=== PATIENT | female | born 2000 | race Caucasian/White ===

== ENCOUNTER 2024-07-07 13:53 | Outpatient (AMB) | payer OTHER, SELFPAY ==
--- NOTE | 2024-07-07 14:07 | A.OFFVIS_ITS ---
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 She says she has never had sex with anybody she has never had a pelvic exam anywhere. 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 She likes it she lives with a roommate she is hoping to have her job in the summer. She has a primary care provider in the [facility] and she said she was referred here for this. She said her primary provider thought she might have PCOS because of her irregular menses increased facial hair and acne and also because she is overweight.. She is just starting on the journey of trying to address these issues and has not yet established a full pattern of exercise and changing diet but she is paying attention to it. She wonders if she has PCOS and if she does what she should take for it. 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 Acne and acne scars noted on face and chest and size and labia.. Hirsute is Um is cosmetically addressed External vegetable scullion exam notable for the above acne scarring but also an open shallow lesion right upper labia minora just to the right of her clitoris about 1 cm oval patient says it was more painful when it started and she has had it before and she can not explain or tell me if it happens when she has scratched herself or irritated herself or any thing and she can not recall any oral similar lesions either.. Culture was taken speculum exam consistent with nulliparous patient vagina is slightly reddened cervix slightly reddened but nulliparous small long thick closed uterus not palpable secondary to adipose adnexa nontender fair tone with Kegel. General: healthy appearing, comfortable, no acute distress, well developed and alert Nutritional Appearance: average body habitus Orientation/consciousness: patient oriented x3 Limitations: no limitations HEENT Head: Yes normocephalic Neck Neck: Yes normal visual inspection Chest Chest palpation & inspection: normal inspection of the chest Breast/axilla inspection: normal inspection of the breasts and normal inspection of the axillae Breast/axilla palpation: normal palpation of the breasts and normal palpation of the axillae Resp Effort & Inspection: normal respiratory effort GI Inspection: Yes normal to inspection, No Abdominal wall edema and No distended Palpation (GI): Soft to palpation and nontender General: Yes bladder normal to palpation External Female Exam: normal external appearance and normal appearance of the urethra Speculum Exam - Vagina: normal appearance of the vagina, normal palpation and normal vaginal discharge Speculum Exam - Cervix: normal appearance of the cervix, normal palpation and nontender Bimanual exam- vagina & uterus: normal bimanual exam, normal palpation, uterine size normal, bladder normal to palpation, consistency normal, normal palpation, uterine mobility normal, uterine shape normal, No Cervical tenderness present, non-tender and no cervical motion tenderness Bimanual Exam- Adnexa, other: normal adnexae, no masses, normal and No adnexal tenderness Neuro General: patient oriented x3 Assessment & Plan Assessment & Plan (1) History of irregular menstrual cycles: Code(s): Z87.42 - Personal history of other diseases of the female genital tract Category: Medical (2) Well woman exam with routine gynecological exam: Code(s): Z01.419 - Encounter for gynecological examination (general) (routine) without abnormal findings Category: Medical (3) Cervical cancer screening: Code(s): Z12.4 - Encounter for screening for malignant neoplasm of cervix Category: Medical (4) Labial lesion: Code(s): N90.89 - Other specified noninflammatory disorders of vulva and perineum Category: Medical (5) Hirsutism: Code(s): L68.0 - Hirsutism Category: Medical (6) Acne: Code(s): L70.9 - Acne, unspecified Category: Medical (7) Obesity (BMI 35.0-39.9 without comorbidity): Code(s): E66.9 - Obesity, unspecified Category: Medical Plan For new vegetable scullion visit. She says she has never had sex with anybody she has never had a pelvic exam anywhere. 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 She likes it she lives with a roommate she is hoping to have her job in the summer. She has a primary care provider in the [facility] and she said she was referred here for this. She said her primary provider thought she might have PCOS because of her irregular menses increased facial hair and acne and also because she is overweight.. She is just starting on the journey of trying to address these issues and has not yet established a full pattern of exercise and changing diet but she is paying attention to it. She wonders if she has PCOS and if she does what she should take for it. -----Discussed in this visit the following: healthy balanced diet, regular and consistent exercise, getting recommended health screens, doing the best she can for her particular health concerns, kegel exercises, pap smear screening and followup recommendations, mammography screening and SBE, normal changes in cycles in her life stage--- . Teaching done about the 1st pelvic exam the need for Pap smear and HPV and its role in abnormal Pap smears and that if she is virginal she would be at low risk but still we should do Pap smears. During the exam it was immediately noted that she had a lesion that was unroofed on her right labia minora next to her clitoris about 1 cm oval which appeared possibly consistent with a herpetic lesion. Patient said she gets some every now and then and that it hurt more when it started but starting to feel better now. She says she also did shave recently and she does not know if she could have cut herself shaving she denies any sexual activity or that anyone has ever touched her there she also does not recall having any cold sores on her lips either and can not identify any time when any other contact would have happened with her labia other than herself. Given this mystery I am doing herpetic culture to assess for herpes and acknowledged that it may be just a scraped from having cut herself shaving. Because there was a suspicion I am also recommending we do full blood work testing for STIs as I am also ordering some blood work to assess for some of the markers that would be consistent with PCOS which I discussed with her in general. I discussed the PCOS is in some ways a poor Name for the health concern which really involves a metabolic syndrome connected with being overweight and all of the hormones being elevated and not in the normal range an d therefore affecting their effect on her body, including the hirsute is Um the acne the irregular menses and the difficulty was losing weight. PCOS was discussed in more detail as well: ---Discussed PCOS in general and specifically about the interplay of the abnormal hormonal milieu related to being overweight, with the elevations of many hormone levels, including testosterone and estrogen, as well as others that contribute to cycles that are anovulatory and therefore prolonged, and when periods do come they come very heavy, and can contribute to lots of cramping, with passage of clots and anemia. Discussed the common symptoms related to the elvated hormonal levels, including increased facial hair, male pattern hair thinning, acne, and increased central abdominal girth. Discussed the interplay with difficulty getting when desired, but still possible, and therefore the need to contracept as appropriate and when needed. Discussed the role of weight loss as the primary, most important, and most likely to succeed, intervention, in achieving healthier status as regards PCOS, and ovulatory regular cycles. Additionally the very important relationship to elevated insulin levels, and blood sugars, and high risk of pre diabetes, progressing to diabetes as well as other metabolic syndromes related to this was discussed. Also discussed common interventions for some of the above, including if appropriate, use of oral contraceptives, . We will await blood work and the ultrasound findings and we will have a visit within the month to review all findings. If the herpes is positive only she can really assess how she could have come in contact with the virus. Since it is getting better for her I did offer her medication but she does not feel she needs it. Discussed in general terms the challenges of obesity and challenges for her health and efforts she is engaging in to manage this including dietary changes water intake attention to sleep inclusion of a regular exercise have it and dealing with the may need stressors of life that can contribute to obesity in general. Encouraged her to continue in all have her best efforts- In addition she will be following up with her primary care provider with a new appointment in August. Labs today pelvic ultrasound soon and follow-up visit after all within the month to revie Orders: Orders Herpes Virus Culture Today Z01.419 - Encounter for gynecological examination (general) (routine) without abnormal findings Hepatitis C Antibody Today N90.89 - Other specified noninflammatory disorders of vulva and perineum, Z01.419 - Encounter for gynecological examination (general) (routine) without abnormal findings, Z12.4 - Encounter for screening for malignant neoplasm of cervix, Z87.42 - Personal history of other diseases of the female genital tract HIV Ab/Ag Today N90.89 - Other specified noninflammatory disorders of vulva and perineum, Z01.419 - Encounter for gynecological examination (general) (routine) without abnormal findings, Z12.4 - Encounter for screening for malignant neoplasm of cervix, Z87.42 - Personal history of other diseases of the female ge nital tract Herpes Simplex Virus Ab IgG Today N90.89 - Other specified noninflammatory disorders of vulva and perineum, Z01.419 - Encounter for gynecological examination (general) (routine) without abnormal findings, Z12.4 - Encounter for screening for malignant neoplasm of cervix, Z87.42 - Personal history of other diseases of the female genital tract Prolactin Today E66.9 - Obesity, unspecified, L68.0 - Hirsutism, L70.9 - Acne, unspecified, N90.89 - Other specified noninflammatory disorders of vulva and perineum, Z01.419 - Encounter for gynecological examination (general) (routine) without abnormal findings, Z12.4 - Encounter for screening for malignant neoplasm of cervix, Z87.42 - Personal history of other diseases of the female genital tract Glucose Random Today E66.9 - Obesity, unspecified, L68.0 - Hirsutism, L70.9 - Acne, unspecified, N90.89 - Other specified noninflammatory disorders of vulva and perineum, Z01.419 - Encounter for gynecological examination (general) (routine) without abnormal findings, Z12.4 - Encounter for screening for malignant neoplasm of cervix, Z87.42 - Personal history of other diseases of the female genital tract Bacterial Vaginosis Panel Today Z01.419 - Encounter for gynecological examination (general) (routine) without abnormal findings CT NG by PCR Today Z01.419 - Encounter for gynecological examination (general) (routine) without abnormal findings Pap Smear Today Z01.419 - Encounter for gynecological examination (general) (routine) without abnormal findings US pelvic and transvaginal Today N90.89 - Other specified noninflammatory disorders of vulva and perineum, Z01.419 - Encounter for gynecological examination (general) (routine) without abnormal findings, Z12.4 - Encounter for screening for malignant neoplasm of cervix, Z87.42 - Personal history of other diseases of the female genital tract Thyroid Stimulating Hormone Today N90.89 - Other specified noninflammatory disorders of vulva and perineum, Z01.419 - Encounter for gynecological examination (general) (routine) without abnormal findings, Z12.4 - Encounter for screening for malignant neoplasm of cervix, Z87.42 - Personal history of other diseases of the female genital tract Testosterone, Free/Total Today N90.89 - Other specified noninflammatory disorders of vulva and perineum, N92.6 - Irregular menstruation, unspecified, Z01.419 - Encounter for gynecological examination (general) (routine) without abnormal findings, Z12.4 - Encounter for screening for malignant neoplasm of cervix, Z87.42 - Personal history of other diseases of the female genital tract Syphilis Screen Today N90.89 - Other specified noninflammatory disorders of vulva and perineum, Z01.419 - Encounter for gynecological examination (general) (routine) without abnormal findings, Z12.4 - Encounter for screening for malignant neoplasm of cervix, Z87.42 - Personal history of other diseases of the female genital tract Hepatitis B Surface Antigen Today N90.89 - Other specified noninflammatory disorders of vulva and perineum, Z01.419 - Encounter for gynecological examination (general) (routine) without abnormal findings, Z12.4 - Encounter for screening for malignant neoplasm of cervix, Z87.42 - Personal history of other diseases of the female genital tract DHEA, Unconjugated Today E66.9 - Obesity, unspecified, L68.0 - Hirsutism, L70.9 - Acne, unspecified, N90.89 - Other specified noninflammatory disorders of vulva and perineum, Z01.419 - Encounter for gynecological examination (general) (routine) without abnormal findings, Z12.4 - Encounter for screening for malignant neoplasm of cervix, Z87.42 - Personal history of other diseases of the female genital tract Coding Level of Care Code New Pt Prev Care 18-39yr([id number] Diagnoses History of irregular menstrual cycles Z87.42 Well woman exam with routine gynecological exam Z01.419 Cervical cancer screening Z12.4 Labial lesion N90.89 Hirsutism L68.0 Acne L70.9 Obesity (BMI 35.0-39.9 without comorbidity) E66.9 Time Spent (min) 70 Comment Extra time taken to discuss physical findings and the question of PCOS
[2024-07-07 14:13] VITALS: BP 118/74; BMI 37.2
== END 2024-07-07 15:47 | disposition home or self-care (01) ==
LOC: HO.HWSM 13:53
PROVIDERS: PCP Internal Medicine; Visit Provider Advanced Practice Midwife
DX: Z01.419 Encounter for gynecological examination (general) (routine) without abnormal findings (principal); N90.89 Other specified noninflammatory disorders of vulva and perineum; L68.0 Hirsutism
CPT/HCPCS: 99385; 99459

== ENCOUNTER 2024-07-07 13:53 | Outpatient (REF) | payer OTHER, SELFPAY | END 2024-07-07 13:54 | disposition home or self-care (01) | LOC: HO.LAB 13:53 | PROVIDERS: PCP Internal Medicine; Visit Provider Advanced Practice Midwife | DX: Z01.419 Encounter for gynecological examination (general) (routine) without abnormal findings (principal); N90.89 Other specified noninflammatory disorders of vulva and perineum; L68.0 Hirsutism; L70.9 Acne, unspecified; E66.9 Obesity, unspecified; Z68.37 Body mass index [BMI] 37.0-37.9, adult; Z87.42 Personal history of other diseases of the female genital tract | CPT/HCPCS: 99385; 99459 ==

== ENCOUNTER 2024-07-07 15:12 | Outpatient (REF) | payer OTHER, SELFPAY ==
[2024-07-07 16:38] LABS: Glucose Random 100 mg/dL (60-115)
[2024-07-07 16:58] LABS: Thyroid Stimulating Hormone 1.83 uIU/mL (0.32-4.0)
[2024-07-07 20:06] LABS: Bacterial Vaginosis PCR NEGATIVE (Negative); Candida Group PCR NOT DETECTED (Not Detect); Candida glab krusei PCR NOT DETECTED (Not Detect); Trichomonas vaginalis PCR NOT DETECTED (Not Detect)
[2024-07-07 20:47] LABS: CT PCR NOT DETECTED (Not Detect.); NG PCR NOT DETECTED (Not Detect.)
[2024-07-08 04:59] LABS: Prolactin 9.7 ng/mL
[2024-07-08 05:49] LABS: Herpes Simplex Type 1 IgG <0.90 index; Herpes Simplex Type 2 IgG <0.90 index
[2024-07-08 08:00] LABS: Syphilis Screen Nonreactive (Nonreactive)
[2024-07-08 08:14] LABS: HBsAGNum1 0.31 S/CO (0.00-0.99); HIV AB/AG Nonreactive (Nonreactive); HIV Num 1 0.07 S/CO (0.00-0.99); Hepatitis B Surface Antigen Negative (Negative); ~HepC Num1 0.08 S/CO (0.00-0.79); ~Hepatitis C Antibody Nonreactive (Nonreactive)
[2024-07-13 14:03] LABS: HPV Genotype 16 Negative (Negative); HPV Genotype 18 Negative (Negative); HPV High Risk Negative (Negative)
[2024-07-14 11:38] LABS: DHEA, Unconjugated 983 ng/dL
[2024-07-17 20:33] LABS: Testosterone, Free 8.7 pg/mL (0.1-6.4); Testosterone, Total 54 ng/dL (2-45)
== END 2024-07-07 15:13 | disposition home or self-care (01) ==
LOC: HO.LNP 15:12
PROVIDERS: Visit Provider Advanced Practice Midwife
DX: Z01.411 Encounter for gynecological examination (general) (routine) with abnormal findings (principal); N90.89 Other specified noninflammatory disorders of vulva and perineum; Z87.42 Personal history of other diseases of the female genital tract; L68.0 Hirsutism; L70.9 Acne, unspecified; E66.9 Obesity, unspecified; N92.6 Irregular menstruation, unspecified; Z12.4 Encounter for screening for malignant neoplasm of cervix
CPT/HCPCS: 81515; 82626; 82947; 84146; 84402; 84403; 84443; 86695; 86696; 86780; 86803; 87255; 87340; 87389; 87491; 87591; 87626; 88175

== ENCOUNTER 2024-07-07 15:24 | Outpatient (REF) | payer OTHER, SELFPAY | END 2024-07-07 15:25 | disposition home or self-care (01) | LOC: HO.HHCL 15:24 | PROVIDERS: Visit Provider Advanced Practice Midwife | DX: Z13.89 Encounter for screening for other disorder (principal) ==

== ENCOUNTER 2024-08-05 16:03 | Outpatient (REF) | payer OTHER, SELFPAY ==
--- NOTE | ~2024-08-05 | US_ITS ---
EXAMINATION: US PELVIS TRANSABDOMINAL AND TRANSVAGINAL HISTORY: Z87.42 - Personal history of other diseases of the female genital tract COMPARISON: There are no prior studies available for comparison. TECHNIQUE: Transabdominal and endovaginal real-time 2D pino-scale ultrasound was performed. FINDINGS: Uterus: The uterus is normal in size, measuring 6.0 x 1.7 x 2.7 cm. Myometrium has a normal echotexture. No fibroids are identified. Endometrium: The endometrial stripe measures 3 mm in thickness. Right ovary: The right ovary measures 4.0 x 2.3 x 2.0 cm. Multiple follicles are seen arranged around the periphery of the ovary. Left ovary: The left ovary measures 3.9 x 2.1 x 2.7 cm. Multiple follicles are seen arranged around the periphery of the ovary. Pelvic fluid: none. US/US pelvic and transvaginal IMPRESSION: Mildly enlarged ovaries demonstrating multiple peripheral follicles. The appearance is suggestive of polycystic ovarian syndrome. Clinical correlation is recommended. Electronically signed by: Ajay Marks MD 08/06/2024 07:18 AM EDT
== END 2024-08-05 16:04 | disposition home or self-care (01) ==
LOC: HO.US 16:03
PROVIDERS: PCP Internal Medicine; Visit Provider Advanced Practice Midwife
DX: N90.89 Other specified noninflammatory disorders of vulva and perineum (principal); Z87.42 Personal history of other diseases of the female genital tract
CPT/HCPCS: 76830; 76856

== ENCOUNTER → 2024-08-05 16:05 | Outpatient (BNV) | payer OTHER, SELFPAY | PROVIDERS: PCP Internal Medicine; Visit Provider Radiology Diagnostic Radiology | DX: E28.2 Polycystic ovarian syndrome (principal); Z87.42 Personal history of other diseases of the female genital tract | CPT/HCPCS: 76856; 78630 ==

== ENCOUNTER 2025-01-06 13:45 | Outpatient (AMB) | payer OTHER, SELFPAY ==
[2025-01-06 13:49] VITALS: BMI 37.2
--- NOTE | 2025-01-06 13:49 | A.OFFVIS_ITS ---
Vital Signs 01/06/25 13:49 Height 5 ft 3 in Weight 210 lb BMI 37.2 Intake Visit Reasons: US Follow up Intake Note: u/s f/u done on 08/05/24 Information Interpreted: non-clinical & clinical Accompanied by: Self / Same As Patient Allergies No Known Allergies Allergy (Verified 01/06/25 13:51) Medication List - Last Reconciled 01/06/25 by Callie Villar LPN doxycycline hyclate 100 mg PO BID duloxetine 60 mg PO DAILY gabapentin 100 mg PO BID temazepam 15 mg PO BEDTIME tretinoin 0.025% (Retin-A) 1 appl topical BEDTIME ziprasidone HCl (Geodon) 20 mg PO BID Is last menstrual period known: Yes Last menstrual period: 10/05/24 HPI HPI US Follow up: Details: Patient is here for follow-up of an ultrasound that was done on August 05. She had wondered whether not she had PCOS and she was having irregular menses she has struggled with acne hirsute is Um and being overweight she is also somewhat depressed. 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 She has a history of irregular menses she initially remembered her period as being last presenting in June but then she remembered that it really came on October 05. She had an ultrasound done to check for signals of PCOS that was done on August 05. However it was not reviewed in the absence of this provider secondary to medical leave, it definitely shows markers for PCOS. I again reviewed her history with her and reviewed the teaching I had done at the previous visit in regards to PCOS and it's contributing factors and the interplay of the elevated hormone levels and an ovulatory cycles and irregular menses as well as the symptoms of hirsute is Um acne and obesity. She has been finding it hard to find time to exercise because she works [employer] She has not had any success with weight loss she will be seeing her primary care provider again on February 07. She has not really talked about any other ways to augment her efforts. She lives in his small studio apartment and does not have room for an exercise bike. She does have a therapist. I discussed with her the options of bringing on a withdrawal bleed with Provera and following up then with irregular prescription for combination OCPs and she is interested in this option which will hopefully help with the period control aspect of her PCOS in terms of dealing with the other aspects we so discussed ways of adding exercise into her life possibly early in the morning before she goes to work and ways to choose healthier foods to aid in her health improvement she will also be following up with her primary care provider. We will see her again in 3 months to see how she is doing after the Provera and the OCP use and I also reviewed danger signs of OCPs. 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 Attending Dr: Shannon Combs CNM Ordering Physician: Shannon Combs CNM Date of Service: 08/05/24 Procedure(s): US pelvic and transvaginal Accession Number(s): [id number] cc: Cristina Vincent MD; Shannon Combs CNM~ EXAMINATION: US PELVIS TRANSABDOMINAL AND TRANSVAGINAL HISTORY: Z87.42 - Personal history of other diseases of the female genital tract COMPARISON: There are no prior studies available for comparison. TECHNIQUE: Transabdominal and endovaginal real-time 2D pino-scale ultrasound was performed. FINDINGS: Uterus: The uterus is normal in size, measuring 6.0 x 1.7 x 2.7 cm. Myometrium has a normal echotexture. No fibroids are identified. Endometrium: The endometrial stripe measures 3 mm in thickness. Right ovary: The right ovary measures 4.0 x 2.3 x 2.0 cm. Multiple follicles are seen arranged around the periphery of the ovary. Left ovary: The left ovary measures 3.9 x 2.1 x 2.7 cm. Multiple follicles are seen arranged around the periphery of the ovary. Pelvic fluid: none. US/US pelvic and transvaginal IMPRESSION: Mildly enlarged ovaries demonstrating multiple peripheral follicles. The appearance is suggestive of polycystic ovarian syndrome. Clinical correlation is recommended. Electronically signed by: Ajay Marks MD 08/06/2024 07:18 AM EDT RP Dictated By: Ajay Marks MD Signed By: <Electronically signed by Ajay Marks MD in OV> 08/06/24 0718 DD/ 10 TD/TT: 08/05/24 162 Hat Sizer: Assessment & Plan Assessment & Plan (1) History of irregular menstrual cycles: Code(s): Z87.42 - Personal history of other diseases of the female genital tract Category: Medical (2) Obesity (BMI 35.0-39.9 without comorbidity): Code(s): E66.9 - Obesity, unspecified Category: Medical (3) Hirsutism: Code(s): L68.0 - Hirsutism Category: Medical (4) Acne: Code(s): L70.9 - Acne, unspecified Category: Medical (5) PCOS (polycystic ovarian syndrome): Comment: Patient has hirsutisUm acne obesity irregular menses as well as ultrasound findings all consistent with PCOS. Code(s): E28.2 - Polycystic ovarian syndrome Category: Medical Plan Patient is here for follow-up of an ultrasound that was done on August 05. She had wondered whether not she had PCOS and she was having irregular menses she blake s struggled with acne hirsute is Um and being overweight she is also somewhat depressed. 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 She has a history of irregular menses she initially remembered her period as being last presenting in June but then she remembered that it really came on October 05. She had an ultrasound done to check for signals of PCOS that was done on August 05. However it was not reviewed in the absence of this provider secondary to medical leave, it definitely shows markers for PCOS. I again reviewed her history with her and reviewed the teaching I had done at the previous visit in regards to PCOS and it's contributing factors and the interplay of the elevated hormone levels and an ovulatory cycles and irregular menses as well as the symptoms of hirsute is Um acne and obesity. She has been finding it hard to find time to exercise because she works [employer] She has not had any success with weight loss she will be seeing her primary care provider again on February 07. She has not really talked about any other ways to augment her efforts. She lives in his small studio apartment and does not have room for an exercise bike. She does have a therapist. I discussed with her the options of bringing on a withdrawal bleed with Provera and following up then with irregular prescription for combination OCPs and she is interested in this option which will hopefully help with the period control aspect of her PCOS in terms of dealing with the other aspects we so discussed ways of adding exercise into her life possibly early in the morning before she goes to work and ways to choose healthier foods to aid in her health improvement she will also be following up with her primary care provider. We will see her again in 3 months to see how she is doing after the Provera and the OCP use and I also reviewed danger signs of OCPs. Medications: New desog-e.estradiol/e.estradiol 0.15-0.02 mgx21 /0.01 mg x 5 1 tab PO DAILY 84 tabs 4RF medroxyprogesterone (Provera) 10 mg PO DAILY 10 tabs 0RF Coding Level of Care Code Est Pt Level 3 (51703) Diagnoses History of irregular menstrual cycles Z87.42 Obesity (BMI 35.0-39.9 without comorbidity) E66.9 Hirsutism L68.0 Acne L70.9 PCOS (polycystic ovarian syndrome) E28.2
== END 2025-01-06 14:40 | disposition home or self-care (01) ==
LOC: HO.HWSM 13:45
PROVIDERS: PCP Internal Medicine; Visit Provider Advanced Practice Midwife
DX: Z87.42 Personal history of other diseases of the female genital tract (principal); E66.9 Obesity, unspecified; L68.0 Hirsutism; L70.9 Acne, unspecified; E28.2 Polycystic ovarian syndrome
CPT/HCPCS: 99213

== ENCOUNTER → 2025-01-06 13:45 | Outpatient (BNVA) | payer OTHER, SELFPAY | PROVIDERS: PCP Internal Medicine; Visit Provider Advanced Practice Midwife | DX: E28.2 Polycystic ovarian syndrome (principal); E66.9 Obesity, unspecified; L68.0 Hirsutism; L70.9 Acne, unspecified; Z87.42 Personal history of other diseases of the female genital tract; Z68.37 Body mass index [BMI] 37.0-37.9, adult | CPT/HCPCS: 99212 ==